=== PATIENT | male | born 1960 | race Caucasian/White ===

== ENCOUNTER → 2022-04-18 | Outpatient (CLI) | payer SELFPAY ==
[~2022-04-18] MED LIST: NORCO 325 MG-51 TAB PO; PEN-VEE K500 MG PO
[2022-04-18 15:04] LABS: BASO # 0.07 K/mm3 (0.02-0.10); EOS # 0.31 K/mm3 (0.04-0.40); EOS % 2.9 % (0.0-4.0); HEMATOCRIT 49.4 % (42.0-52.0); HEMOGLOBIN 16.5 g/dL (13.5-18.0); LYMPH# 2.18 K/mm3 (1.50-4.00); MEAN CELL VOLUME 89 fl (78-100); MEAN CORPUSCULAR HEMOGLOBIN 30 pg (27-31); MEAN CORPUSCULAR HGB CONC 33 g/dL (33-37); MEAN PLATELET VOLUME 10.8 fl (7.4-10.4); MONO # 0.86 K/mm3 (0.20-0.80); NEU # 7.19 K/mm3 (1.40-6.50); PLATELET COUNT 309 K/mm3 (130-400); RED BLOOD COUNT 5.56 M/mm3 (4.20-5.60); RED CELL DISTRIBUTION WIDTH 12.5 % (11.5-14.5); WHITE BLOOD COUNT 10.6 K/mm3 (4.8-10.8)
[2022-04-18 15:12] LABS: ALBUMIN 4.7 g/dL (3.5-5.0)
[2022-04-18 15:13] LABS: POTASSIUM 4.3 mmol/L (3.5-5.1)
[2022-04-18 15:15] LABS: TOTAL PROTEIN 7.9 g/dL (6.4-8.3)
[2022-04-18 15:17] LABS: TOTAL BILIRUBIN 0.6 mg/dL (0.2-1.2)
== END ==
LOC: LAB 14:48
PROVIDERS: Family Medicine
DX: G62.9 Polyneuropathy, unspecified (principal); R10.9 Unspecified abdominal pain; R06.83 Snoring; F17.210 Nicotine dependence, cigarettes, uncomplicated